=== PATIENT | male | born 1990 ===

== ENCOUNTER 2017-07-04 16:03 | Emergency (ER) | payer OTHER ==
[2017-07-04 17:12] VITALS: RESP 16
[2017-07-04] MEDS ORDERED: cefTRIAXone (Rocephin) 250 mg Inj IM STA (18:06)
[2017-07-04] MEDS ORDERED: Emtricitabine-Tenofovir 200 mg-300 mg Tab PO STA (18:06)
[2017-07-04] MEDS ORDERED: Emtricitabine-Tenofovir 200 mg-300 mg Tab PO NR (18:15)
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
[2017-07-04 19:25] LABS: URINE BACTERIA RARE (<OCC); URINE BILIRUBIN NEGATIVE (NEGATIVE); URINE BLOOD NEGATIVE (NEGATIVE); URINE CLARITY Clear (Clear); URINE COLOR Yellow (YELLOW); URINE GLUCOSE (UA) NORMAL (Normal); URINE LEUKOCYTE ESTERASE NEG Leu/uL (Negative); URINE PROTEIN NEGATIVE (NEGATIVE)
[2017-07-04 19:49] VITALS: BP 145/82; PULSE 62; TEMP 98.2
[2017-07-06 18:13] VITALS: O2SAT 98
== END 2017-07-04 19:59 | disposition home or self-care (01) ==
LOC: C.ER 16:03
DX: K62.89 Other specified diseases of anus and rectum (principal)
CPT/HCPCS: 81001; 86592; 86706; 87491; 87591; 96372; 99283; J0696